=== PATIENT | female | born 1945 | race Caucasian/White ===

== ENCOUNTER → 2017-03-20 | Outpatient (CLI) | payer OTHER, MEDICARE | LOC: FIMAGING 11:01 | PROVIDERS: ATTEND Internal Medicine | DX: Z12.31 Encounter for screening mammogram for malignant neoplasm of breast (principal) ==

== ENCOUNTER → 2017-05-25 | Outpatient (CLI) | payer OTHER, MEDICARE | LOC: BMCIMAGING 11:09 | PROVIDERS: ATTEND Family Medicine | DX: M25.571 Pain in right ankle and joints of right foot (principal) ==

== ENCOUNTER 2017-07-19 16:21 | Emergency (ER) | payer OTHER, MEDICARE ==
[2017-07-19] MEDS ORDERED: NS 1,000 ML IV ONE (16:55)
--- NOTE | 2017-07-19 16:58 | EDPHY ---
H & P Stated Complaint: hasn't had a normal BM for 2 weeks Time Seen by Provider: 07/19/17 16:42 HPI/ROS: CHIEF COMPLAINT: Abnormal stool HISTORY OF PRESENT ILLNESS: Patient is a 71-year-old female who states that she has had decreased and small stools for the last 2 weeks. She has not had any bowel movement for the last 2 days. She does not think she has passed gas. She states that she has been burping a lot but no vomiting. She denies any abdominal pain or bloating. She called her gastrologist office who recommended she come here for CT scan to rule out obstruction. 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 She also complains of intermittent perineal pain. No vaginal bleeding or discharge. No rash. No urinary symptoms. No fever. She had a colonoscopy 1 year ago that was unremarkable. REVIEW OF SYSTEMS: Constitutional: denies: chills, fever, recent illness, recent injury EENTM: denies: blurred vision, double vision, nose congestion Respiratory: denies: cough, shortness of breath Cardiac: denies: chest pain, irregular heart rate, lightheadedness, palpitations Gastrointestinal/Abdominal: See HPI no diarrhea Genitourinary: denies: dysuria, frequency, hematuria, pain Musculoskeletal: denies: joint pain, muscle pain Skin: denies: lesions, rash, jaundice, bruising Neurological: denies: headache, numbness, paresthesia, tingling, dizziness, weakness Hematologic/Lymphatic: denies: blood clots, easy bleeding, easy bruising Immunologic/allergic: denies: HIV/AIDS, transplant EXAM: GENERAL: Well-appearing, well-nourished and in no acute distress. HEAD: Atraumatic, normocephalic. EYES: Pupils equal round and reactive to light, extraocular movements intact, sclera anicteric, conjunctiva are normal. ENT: TMs normal, nares patent, oropharynx clear without exudates. Moist mucous membranes. NECK: Normal range of motion, supple without lymphadenopathy or JVD. LUNGS: Breath sounds clear to auscultation bilaterally and equal. No wheezes rales or rhonchi. HEART: Regular rate and rhythm without murmurs, rubs or gallops. ABDOMEN: Soft, nontender, normoactive bowel sounds. No guarding, no rebound. No masses appreciated. BACK: No CVA tenderness, no spinal tenderness, step-offs or deformities EXTREMITIES: Normal range of motion, no pitting or edema. No clubbing or cyanosis. NEUROLOGICAL: Cranial nerves II through XII grossly intact. Normal speech, normal gait. 5/5 strength, normal movement in all extremities, normal sensation PSYCH: Normal mood, normal affect. SKIN: Warm, dry, normal turgor, no visible rashes or lesions. Source: Patient Exam Limitations: No limitations - Medical/Surgical History Hx Asthma: No Hx Chronic Respiratory Disease: No Hx Diabetes: No Hx Cardiac Disease: No Hx Renal Disease: No Hx Cirrhosis: No Hx Alcoholism: No Hx HIV/AIDS: No Hx Splenectomy or Spleen Trauma: No Other PMH: hyperlipidemia, TIFFANIE, osteoporosis - Family History Significant Family History: No pertinent family hx - Social History Smoking Status: Never smoked Alcohol Use: Sober Drug Use: None Constitutional: Initial Vital Signs Temperature (C) 36.7 C 07/19/17 16:24 Heart Rate 69 07/19/17 16:24 Respiratory Rate 18 07/19/17 16:24 Blood Pressure 154/76 H 07/19/17 16:24 O2 Sat (%) 93 07/19/17 16:24 O2 Delivery Mode Room Air Allergies/Adverse Reactions: Penicillins Allergy (Intermediate, Verified 07/19/17 16:23) Hives latex Allergy (Verified 07/19/17 16:23) Home Medications: Medication Instructions Recorded Statin 07/19/17 Medical Decision Making - Diagnostics Imaging Results: Imaging Impressions Abdomen CT 07/19/17 16:56 Impression: 1. Constipation. No obstruction. 2. Normal appendix. No localized intraabdominal inflammatory process. 3. Mild biliary dilation. No evidence of common bile duct stone or pancreatic head mass. Findings discussed with Emergency Department physician, Ray Dale M.D., on July 19, 2017 at 1807. Imaging: Discussed imaging studies w/ call box wirer Radiologist ED Course/Re-evaluation: 6:20 p.m. we discussed the CT and lab results which are all very reassuring. We did discuss using MiraLax for constipation and I also recommended she follow up again with her gastrologist Dr. Hung possibly for biopsies or another scope. She and her understand agree with this plan. Differential Diagnosis: Partial list of the Differential diagnosis considered include but were not limited to; constipation, irritable bowel disease and although unlikely based on the history and physical exam, I also considered ulcerative colitis, Crohn's , obstruction, ischemia, volvulus, appendicitis, mass. I discussed these differential diagnoses and the plan with the patient as well as the usual and expected course. The patient understands that the diagnosis is provisional and that in medicine we are not always correct and that further workup is often warranted. Usual and customary warnings were given. All of the patient's questions were answered. The patient was instructed to return to the emergency department should the symptoms at all worsen or return, otherwise to followup with the physician as we discussed. - Data Points Laboratory Results: Laboratory Results 07/19/17 16:57 07/19/17 16:57 07/19/17 07/19/17 16:57 16:57 WBC 5.86 10^3/uL 10^3/uL (3.80-9.50) RBC 4.71 10^6/uL 10^6/uL (4.18-5.33) Hgb 14.3 g/dL g/dL (12.6-16.3) Hct 42.2 % % (38.0-47.0) MCV 89.6 fL fL (81.5-99.8) MCH 30.4 pg pg (27.9-34.1) MCHC 33.9 g/dL g/dL (32.4-36.7) RDW 12.6 % % (11.5-15.2) Plt Count 233 10^3/uL 10^3/uL (150-400) MPV 10.2 fL fL (8.7-11.7) Neut % (Auto) 57.5 % % (39.3-74.2) Lymph % (Auto) 29.7 % % (15.0-45.0) Piatt % (Auto) 7.7 % % (4.5-13.0) Eos % (Auto) 3.8 % % (0.6-7.6) Baso % (Auto) 1.0 % % (0.3-1.7) Nucleat RBC Rel Count 0.0 % % (0.0-0.2) Absolute Neuts (auto) 3.37 10^3/uL 10^3/uL (1.70-6.50) Absolute Lymphs (auto) 1.74 10^3/uL 10^3/uL (1.00-3.00) Absolute Monos (auto) 0.45 10^3/uL 10^3/uL (0.30-0.80) Absolute Eos (auto) 0.22 10^3/uL 10^3/uL (0.03-0.40) Absolute Basos (auto) 0.06 10^3/uL 10^3/uL (0.02-0.10) Absolute Nucleated RBC 0.00 10^3/uL 10^3/uL (0-0.01) Immature Gran % 0.3 % % (0.0-1.1) Immature Gran # 0.02 10^3/uL 10^3/uL (0.00-0.10) Sodium 141 mEq/L mEq/L (135-145) Potassium 4.3 mEq/L mEq/L (3.3-5.0) Chloride 104 mEq/L mEq/L (97-110) Carbon Dioxide 22 mEq/l mEq/l (22-31) Anion Gap 15 mEq/L mEq/L (8-16) BUN 18 mg/dL mg/dL (7-23) Creatinine 0.9 mg/dL mg/dL (0.6-1.0) Estimated GFR > 60 Glucose 99 mg/dL mg/dL (70-100) Calcium 9.8 mg/dL mg/dL (8.5-10.4) Total Bilirubin 0.7 mg/dL mg/dL (0.1-1.4) Conjugated Bilirubin 0.5 mg/dL mg/dL (0.0-0.5) Unconjugated Bilirubin 0.2 mg/dL mg/dL (0.0-1.1) AST 41 IU/L IU/L (14-46) ALT 37 IU/L IU/L (9-52) Alkaline Phosphatase 83 IU/L IU/L (38-126) Total Protein 7.6 g/dL g/dL (6.3-8.2) Albumin 4.5 g/dL g/dL (3.5-5.0) Lipase 120 IU/L IU/L (23-300) Medications Given: Discontinued Medications Sodium Chloride (Ns) 1,000 mls @ 0 mls/hr IV EDNOW ONE; Wide Open PRN Reason: Protocol Stop: 07/19/17 16:56 Last Admin: 07/19/17 17:26 Dose: 1,000 mls Departure - Departure Disposition: Home, Routine, Self-Care Clinical Impression: Constipation Qualifiers: Constipation type: unspecified constipation type Qualified Code(s): K59.00 - Constipation, unspecified Condition: Fair Instructions: Constipation (ED) Additional Instructions: Use MiraLax as we discussed, 1 cap full every hour until you have satisfactory results and then titrate. Referrals: Royer Uribe MD [Primary Care Provider] - As per Instructions Vamshi Hung MD [Medical Doctor] - As per Instructions
[2017-07-19 17:10] LABS: PLATELET COUNT 233 10^3/uL (150-400)
[2017-07-19] MEDS ORDERED: IOPAMIDOL (ISOVUE-300) 100 ML BTL ONE (17:39)
[2017-07-19 18:48] VITALS: BP 153/73
== END 2017-07-19 18:48 | disposition home or self-care (01) ==
DX: K59.00 Constipation, unspecified (principal)
CPT/HCPCS: 74177; 99285; Q9967

== ENCOUNTER 2017-08-08 16:13 | Emergency (ER) | payer OTHER, MEDICARE ==
[2017-08-08] MEDS ORDERED: ONDANSETRON DISINTEGRATING 4 MG TAB PO ONE (17:06)
--- NOTE | 2017-08-08 17:06 | EDPHY ---
H & P Stated Complaint: Fell - 07/28/17. Light headed, nauseous, fatigue since fall Source: Patient, Family (), Old records Exam Limitations: No limitations - Personal History Current Tetanus Diphtheria and Acellular Pertussis (TDAP): Yes - Medical/Surgical History Hx Asthma: No Hx Chronic Respiratory Disease: No Hx Diabetes: No Hx Cardiac Disease: No Hx Renal Disease: No Hx Cirrhosis: No Hx Alcoholism: No Hx HIV/AIDS: No Hx Splenectomy or Spleen Trauma: No Other PMH: hyperlipidemia, TIFFANIE, osteoporosis - Social History Smoking Status: Never smoked Time Seen by Provider: 08/08/17 17:00 HPI/ROS: HPI: This is a 72-year-old female who presents with Chief Complaint: Fell - 07/28/17. Light headed, nauseous, fatigue since fall the so hold the a Location: body Quality: Nausea, fatigue, lightheaded Duration: 11 days Signs and Symptoms: + eye strain, + headache, + fatigue, + nausea, no neck pain , no chest pain, no vertigo, no fever, no vision changes Timing: daily Severity: [id number] Context: Patient reports that she was walking on [employer] during the [employer] club wearing a hat when she accidentally tripped on some uneven pavement and fell forward landing on her right knee. She reports that she did not hit her head or lose consciousness. A bystander saw her fallen helped her over into the grass to get her"bearings." Patient reports that she was able to remember the entire injury. Since that time she has developed some nausea but no vomiting accompanied by generalized fatigue and lightheadedness when she reads for long periods of time. She does complain of a bilateral frontal headache that occurs throughout the day that is nonradiating in nature. She denies any vision changes, neck stiffness, neck pain. She reports that her right knee is now bruised but she is able to walk without any difficulty and denies any pain, radiation, weakness, swelling. She went to her dentist this morning and described her symptoms and he told her that she had a concussion and needed to be seen so her and her decided to come to the emergency room. Patient reports that she has no history of concussions in the past. Modifying Factors: None Comment: ROS: see HPI Constitutional: No fever, no chills, no weight loss Eyes: No blurred vision Respiratory: No shortness of breath, no cough Cardiovascular: No chest pain Gastrointestinal: No nausea, no vomiting, no diarrhea Genitourinary: No dysuria Extremities: No myalgias Neurologic: No weakness, no numbness Skin: No rashes Hematologic: No bruising, no bleeding MEDICAL/SURGICAL/SOCIAL HISTORY: Medical history: hyperlipidemia, TIFFANIE, osteoporosis Surgical history: Denies Social history: Retired, . Family history noncontributory. CONSTITUTIONAL: Extremely polite and cooperative elderly white female, awake and alert, no obvious distress HEENT: Atraumatic and normocephalic, PERRL, EOMI. no globe entrapment, no raccoon eyes. no [place] signs.Tympanic membranes clear. No tympanic membrane rupture. Nares patent; no septal hematoma. Oropharynx clear, no exudate and moist pink mucosa. No malocclusion. no dental trauma. Airway patent. No lymphadenopathy. NECK: supple, no midline tenderness, flexion 45 degrees, extension 45 degrees, right and left lateral flexion 45 degrees. No meningismus. Cardiovascular: Normal S1/S2, regular rate, regular rhythm, without murmur rub or gallop. PULMONARY/CHEST: Symmetrical and nontender. no crepitus. Clear to auscultation bilaterally. Good air movement. No accessory muscle usage. ABDOMEN: Soft, nondistended, nontender, no ecchymosis, no rebound, no guarding , no peritoneal signs, no masses or organomegaly. No CVAT. PELVIC: no pain with rocking; bilateral hips flexion 125 degrees, extension 30 degrees, with no pain internal rotation and no pain external rotation. BACK: No midline tenderness, no paraspinous spasm, deep tendon reflexes 2/2, no pain with straight leg raise EXTREMITIES: 2/2 pulses, right KNEE: Greenish ecchymosis noted on anterior portion; no effusion, medial and lateral joint line tenderness, full extension to 180, flexion to 120. No pain with varus and valgus exam. No pain with anterior drawer or posterior drawer test. no deformities, no clubbing, no cyanosis or edema. NEUROLOGICAL: no focal neuro deficits. GCS 15. SKIN: Warm and dry, no erythema. no rash. Good capillary refill. (Pilar,Terra) Constitutional: Initial Vital Signs Temperature (C) 36.6 C 08/08/17 16:18 Heart Rate 67 08/08/17 16:18 Respiratory Rate 18 08/08/17 16:18 Blood Pressure 123/72 H 08/08/17 16:18 O2 Sat (%) 98 08/08/17 16:18 O2 Delivery Mode Room Air Allergies/Adverse Reactions: Penicillins Allergy (Intermediate, Verified 07/19/17 16:23) Hives latex Allergy (Verified 07/19/17 16:23) Home Medications: Medication Instructions Recorded Statin 07/19/17 Ondansetron Odt [Zofran Odt 4 mg 4 mg PO Q4 PRN #12 tab 08/08/17 (*)] Medical Decision Making - Diagnostics Imaging Results: Imaging Impressions Head CT 08/08/17 17:06 Impression: Normal. Findings and recommendations discussed with Cyndy Quezada at 1800 hour, 2017. Final report concurs with initial preliminary interpretation. ED Course/Re-evaluation: Based on [place] head CT protocol as age greater than 65 years old, head CT scan ordered. Based on [facility] protocol, cervical CT scan not recommended. I offered the patient an x-ray of her right knee but she politely declined. She reports that her symptoms have greatly improved and she feels almost back to 100 % in her knee. Patient given p.o. Zofran 4 mg Fall was accidental in nature and there was no indication of acute coronary event or syncopal episode. 1808: Called by Radiology who advised head CT scan shows no acute intracranial process. No signs of hemorrhage, infarct, edema. Reassessed patient who reports relief of her symptoms. She will be discharged home with a prescription for Zofran and referral to Dr. Squires in the concussion Clinic. This patient was seen under the supervision of my secondary supervising physician. I evaluated care for this patient independently. Discussed this patient with Dr. Gomez who did not see the patient. (Cyndy Quezada) I did not see this patient while she was in the emergency department. However her care was discussed with the PA while the patient was in the department. I agree with treatment plan and management (Royer Gomez) Differential Diagnosis: Head injury including but not limited to concussion, skull fracture, intraparenchymal contusion, subarachnoid, subdural and epidural hematoma. (Cyndy Quezada) - Data Points Medications Given: Discontinued Medications Ondansetron HCl (Zofran Odt) 4 mg PO EDNOW ONE Stop: 08/08/17 17:07 Last Admin: 08/08/17 17:12 Dose: 4 mg Departure - Departure Disposition: Home, Routine, Self-Care Clinical Impression: Post concussion syndrome Condition: Good Instructions: Concussion (ED), Post Concussion Syndrome (ED) Additional Instructions: Please rest as much as possible until your symptoms have resolved. Observe concussion precautions including no contact sports until all symptoms have resolved. Take Zofran 1 tablet every 4 hr as needed for nausea. Follow-up with Dr. Squires in the concussion Clinic. Return to the ER immediately if you have progressive headaches, neurologic deficits, gait abnormality, visual disturbance, slurred speech, or any other symptom that concerns you. Referrals: Royer Uribe MD [Primary Care Provider] - As per Instructions Emma Squires MD [Medical Doctor] - As per Instructions Prescriptions: Ondansetron Odt [Zofran Odt 4 mg (*)] 4 mg PO Q4 PRN #12 tab PRN Reason: Nausea/Vomiting, Use 1st
[2017-08-08 18:21] VITALS: BP 111/85
== END 2017-08-08 18:21 | disposition home or self-care (01) ==
DX: S06.0X0A Concussion without loss of consciousness, initial encounter (principal); Z91.040 Latex allergy status; W01.0XXA Fall on same level from slipping, tripping and stumbling without subsequent striking against object, initial encounter; Y99.8 Other external cause status; Y93.01 Activity, walking, marching and hiking

== ENCOUNTER → 2017-12-31 | Outpatient (CLI) | payer OTHER, MEDICARE | LOC: FIMAGING 08:36 | PROVIDERS: ATTEND Internal Medicine | DX: R05 Cough (principal); R13.14 Dysphagia, pharyngoesophageal phase; K21.9 Gastro-esophageal reflux disease without esophagitis ==

== ENCOUNTER → 2018-03-01 | Outpatient (CLI) | payer OTHER, MEDICARE | LOC: BMCIMAGING 10:10 | PROVIDERS: ATTEND Internal Medicine | DX: M81.0 Age-related osteoporosis without current pathological fracture (principal) ==

== ENCOUNTER → 2018-04-29 | Outpatient (CLI) | payer OTHER, MEDICARE | LOC: FIMAGING 09:16 | PROVIDERS: ATTEND Internal Medicine | DX: Z12.31 Encounter for screening mammogram for malignant neoplasm of breast (principal) ==

== ENCOUNTER → 2018-06-22 | Outpatient (CLI) | payer OTHER, MEDICARE | LOC: BMCIMAGING 13:28 | PROVIDERS: ATTEND Family Medicine | DX: R07.81 Pleurodynia (principal) | CPT/HCPCS: 71101-PO ==